=== PATIENT | female | born 1975 | race Caucasian/White ===

== ENCOUNTER 2020-06-15 14:21 | Emergency (ER) | payer MEDICAID ==
[~2020-06-15] VITALS: Ht 165.1 cm; Wt 79.4 kg
[2020-06-15 14:22] VITALS: BP 125/70
--- NOTE | 2020-06-15 14:25 | NUR ---
44 y/o female [place] [address] c/o right foot pain x 2 years. Pt able to ambulate. Pain worse with ambulation. 7/10 throbbing pain. Denies trauma/injury. VSS medhx: DM, psych
--- NOTE | 2020-06-15 14:53 | NUR ---
PATIENT LEFT WITHOUT BEING SEEN BY DR. JAMISON. NO FURTHER CARE PROVIDED FOR PATIENT.
== END 2020-06-15 14:53 | disposition left against medical advice (07) ==
LOC: MED 14:21
DX: M79.671 Pain in right foot (principal); Z53.21 Procedure and treatment not carried out due to patient leaving prior to being seen by health care provider

== ENCOUNTER 2020-06-21 00:29 | Emergency (ER) | payer MEDICAID ==
--- NOTE | 2020-06-21 00:45 | NUR ---
PATIENT CALLED [facility] NO RESPONSE PATIENT LEFT WITHOUT BEING SEEN BY DR. PARR. NO FURTHER CARE PROVIDED FOR PATIENT.
--- NOTE | 2020-06-21 00:50 | NUR ---
CALLED FOR THE SECOND TIME NO RESPONSE
--- NOTE | 2020-06-21 00:55 | NUR ---
CALLED FOR THE THIRD TIME, NO RESPONSE
== END 2020-06-21 00:45 | disposition home or self-care (01) ==
LOC: MED 00:29
DX: Z53.21 Procedure and treatment not carried out due to patient leaving prior to being seen by health care provider (principal)